=== PATIENT | male | born 2000 | race African-American/Black ===

== ENCOUNTER 2022-11-15 21:15 | Emergency (ER) | payer MEDICAID, OTHER ==
[~2022-11-15] VITALS: Ht 165.1 cm; Wt 54.3 kg
[2022-11-16] MEDS ORDERED: DEXAMETHASONE 2MG TABLET PO ONE (02:30)
[2022-11-16] MEDS ORDERED: KETOROLAC 30MG/ML VIAL IM ONE (02:30)
[2022-11-16] MEDS ORDERED: AMOX-494 MT (02:34)
[2022-11-16] MEDS ORDERED: NAPR-681 MT (02:37)
[2022-11-16] MEDS ORDERED: ACET-2708 MT (02:37)
[2022-11-16 02:58] VITALS: BP 104/61
== END 2022-11-16 03:01 | disposition home or self-care (01) ==
LOC: ER 21:15
DX: J02.0 Streptococcal pharyngitis (principal)
CPT/HCPCS: 87070; 87430; 96372; 99283; J1885; J8540; Z7610